=== PATIENT | female | born 1950 | race Hispanic/Latino ===

== ENCOUNTER 2025-05-15 13:57 | Emergency (ER) | payer MEDICARE, MEDICAID ==
[~2025-05-15] VITALS: Ht 162.6 cm; Wt 81.6 kg
[2025-05-15 15:13] LABS: INFLUENZA TYPE A Negative For Type A (NEGATIVE); INFLUENZA TYPE B Negative For Type B (NEGATIVE)
[2025-05-15 15:15] VITALS: BP 142/59; PULSE 84; RESP 18; TEMP 98.2; O2SAT 98
[2025-05-15 15:20] LABS: COVID19 (SARS ANTIGEN RAPID) POSITIVE FOR SARS AG (NEGATIVE)
--- NOTE | 2025-05-15 15:30 | HMCIMG ---
EXAM: CR Chest, 1 View. CLINICAL HISTORY: Cough COMPARISON: None provided. FINDINGS: LUNGS: There is no mass, infiltrate, or acute pulmonary abnormality. PLEURAL SPACES: No pleural effusion or pneumothorax. MEDIASTINUM: Mild cardiomegaly. Pulmonary vasculature and interstitial markings are within normal limits. BONES: No acute osseous abnormality. IMPRESSION: 1. Mild cardiomegaly. /[place]
[2025-05-15] MEDS ORDERED: MOLN200C PO (15:39)
--- NOTE | 2025-05-15 15:39 | ERN ---
General Chief Complaint: Other Problems Stated Complaint: COVID + Time Seen by MD: 14:05 Time Seen by Midlevel: 14:05 Source: patient History of Present Illness Initial Comments 74-year-old female who presents to the emergency department due to a positive COVID test at home. Patient states she took test at home yesterday her positive results today. Reports cough, congestion but denies any fever, chest pain, difficulty breathing or further associated symptoms. PMHx DM, hyperchole sterolemia Allergies: Coded Allergies: acetaminophen (Unverified Allergy, Unknown, 05/15/25) etoposide (Unverified Allergy, Unknown, 05/15/25) hydrocodone (Unverified Allergy, Unknown, 05/15/25) Home Meds Active Scripts Molnupiravir (Molnupiravir (Eua)) 200 Mg Capsule, 4 CAP PO BID for 5 Days, #40 CAP 0 Refills Prov:JEFF MARTINEZ 05/15/25 Past Medical History Past Medical History: Diabetes-Type II Past Surgical History: None ROS Dictation Constitutional: Negative for fever,chills, and weight loss Eyes: Negative for injury, pain,redness, and discharge ENT: Positive for congestion Negative for injury,pain or swelling Cardiovascular: Negative for chest pain, palpitations, and edema Respiratory: Positive for cough Negative for shortness of breath, and wheezing, Abdomen/GI: Negative for abdominal pain, nausea, vomiting, diarrhea, and constipation Back: Negative for injury and pain : Negative for painful urination, bleeding or discharge MS/Extremity: Negative for injury and deformity Skin: Negative for rash, and discoloration Neuro: Negative for headache, weakness, numbness, tingling, and seizure Psych: Negative for suicide ideation, homicidal ideation, and hallucinations Physical Exam Physical Exam Dictation General: awake, alert, no acute distress Head/Face: Normocephalic, atraumatic Eyes: PERRL, EOMI, normal conjunctiva ENT: oral cavity clear, oral mucosa moist Neck: Supple, normal range of motion Cardiovascular: RRR, normal S1/S2 Respiratory: CTAB, no respiratory distress, no rales or wheezes Skin: Warm, dry, normal turgor, no rash MS/Extremity: Pulses equal, no cyanosis, neurovascular intact, FROM Neuro: COAx4, GCS 15, strength 5/5, CN 2-12 intact, normal cerebellar exam, normal gait Psych: Normal behavior, mood, and affect normal Results Laboratory and Microbiology Lab and Micro Result Laboratory Tests Test 05/15/25 14:50 Influenza Type A Antigen Negative For Type A Influenza Type B Antigen Negative For Type B SARS-CoV-2 Antigen (Rapid) POSITIVE FOR SARS AG Labs Reviewed?: Yes EKG/XRAY/US/CT/MRI X-RAY Comment REASON: Cough ORDERING PHYSICIAN: JEFF MARTINEZ PROCEDURE: CXR1VW - CHEST 1VW EXAM: CR Chest, 1 View. CLINICAL HISTORY: Cough COMPARISON: None provided. FINDINGS: LUNGS: There is no mass, infiltrate, or acute pulmonary abnormality. PLEURAL SPACES: No pleural effusion or pneumothorax. MEDIASTINUM: Mild cardiomegaly. Pulmonary vasculature and interstitial markings are within normal limits. BONES: No acute osseous abnormality. IMPRESSION: 1. Mild cardiomegaly. /[place] DICTATED BY: MARY COREA Jr., MD DATE: 05/15/25 1629 MDM MDM: Differential diagnosis: Viral illness, influenza, pneumonia Rationale: 74-year-old female who presents to the emergency department due to a positive COVID test at home. Patient states she took test at home yesterday her positive results today. Reports cough, congestion but denies any fever, chest pain, difficulty breathing or further associated symptoms. PMHx DM, hypercholesterolemia Per physical examination patient is in no acute distress, nonlabored breathing, bilateral breath sounds auscultated. Influenza negative, SARs positive. Chest x-ray obtained indication of mild cardiomegaly no other acute findings. Patient was educated on findings and diagnosis. Advised to follow up with PCP. Return to the emergency department for any worsening symptoms. Patient verbalized understanding. Patient stable for discharge. There are no social concerns with this patient. I independently interpreted the test that were performed, results were reviewed by me and considered findings on radiology if ordered. Medical management and examination interpretation discussions were had by me with other qualified healthcare professionals as indicated for the patient's care. ED Course Orders Procedure Category Date Status Time Covid19 (Sars Antigen LAB 05/15/25 Complete Rapid) 14:20 Influenza Type A & B, LAB 05/15/25 Complete Rapid 14:20 Chest 1vw RAD 05/15/25 Resulted 14:20 Vital Signs Date Time Temp Pulse Resp B/P (MAP) Pulse Ox O2 Delivery O2 Flow Rate FiO2 05/15/25 15:15 98.2 84 18 142/59 98 Room Air* 0 21 05/15/25 14:02 98.2 88 18 182/83 98 DX & DISP Disposition: Discharge Departure Impression: Primary Impression: SARS-CoV-2 positive Condition: Stable Scripts Molnupiravir (Molnupiravir (Eua)) 200 Mg Capsule 4 CAP PO BID for 5 Days, #40 CAP 0 Refills Prov: JEFF MARTINZE 05/15/25 Additional Instructions: Discharge home. Rest. Follow up with primary care DrAdore in 24 hours. Return to the ER for any acute changes or worsening symptoms. If any medications were prescribed take as directed. Okay to continue home medications unless otherwise discussed during your visit in the emergency room today. Patient was also advised to follow-up with primary care physician in 1 to 2 days for continued monitoring. Referrals: SELF,REFERRAL (PCP) I performed the substantive portion of the visit. I have reviewed and personally made and approve the management plan that is documented in the notes by myself or the CHARLY. I acknowledge full responsibility for the patient's management plan. JEFF MARTINEZ May 15, 2025 15:39
--- NOTE | 2025-05-15 16:04 | NUR ---
PT AAOX4. P STABLE NO DISTRESS VITALS WNL NO C/O PAIN NOW, PT GIVEN INSTRUCTIONS VERBALZIED UNDERSTANDING. PT GIVEN ON RX IN HAND. PT WALKED TO ED LOBBY DRIVEN HOME BY SPOUSE.
== END 2025-05-15 16:11 | disposition home or self-care (01) ==
LOC: EDH 13:57
DX: U07.1 COVID-19 (principal); E11.9 Type 2 diabetes mellitus without complications; E78.00 Pure hypercholesterolemia, unspecified; Z88.5 Allergy status to narcotic agent
CPT/HCPCS: 71045; 87426; 87804; 99284